=== PATIENT | female | born 1990 | race Caucasian/White ===

== ENCOUNTER 2019-02-02 05:07 | Inpatient (IN) | payer BC ==
[~2019-02-02] VITALS: Ht 170.2 cm; Wt 81.2 kg
[2019-02-02] VITALS (46 sets, daily range): BP systolic 102–137; BP diastolic 51–74; PULSE 50–123; TEMP 97.6–99.1
[2019-02-02] MEDS ORDERED: PRENATAL PO (05:32)
[2019-02-02] MEDS ORDERED: OSCAL 500 TAB500 MG PO (05:33)
[2019-02-02 06:15] LABS: BASO % 0.3 % (0.0-2.0); EOS # 0.1 (0.0-0.7); EOS % 0.5 % (0-4.0); GRAN # 9.9 (1.4-6.5); GRAN % 83.1 % (42.2-75.2); HEMATOCRIT 37.8 % (37.0-47.0); HEMOGLOBIN 12.6 g/dl (12.5-16.0); LYMPH # 1.2 (1.2-3.4); LYMPH % 10.3 % (20.0-51.0); MEAN CELL VOLUME 85 fl (80.0-100.0); MEAN CORPUSCULAR HEMOGLOBIN 28 pg (27.0-31.0); MEAN CORPUSCULAR HGB CONC 33 g/dl (33.0-37.0); MEAN PLATELET VOLUME 10.5 fl (7.4-10.4); MONO # 0.6 (0.1-0.6); PLATELET COUNT 290 K/mm3 (130-400); RED BLOOD COUNT 4.43 M/mm3 (4.10-5.30); REDCELL DISTRIBUTION WIDTH-CV 13.5 % (11.5-14.5)
[2019-02-03 00:30] VITALS: BP 108/51; PULSE 61; TEMP 97.7
[2019-02-03 08:45] VITALS: BP 98/62; PULSE 68; TEMP 97.1
[2019-02-03 21:00] VITALS: BP 107/54; PULSE 63; TEMP 98.4
[2019-02-04 08:57] VITALS: BP 102/68; PULSE 76; TEMP 98.1
[2019-02-04] MEDS ORDERED: PERCOCET 325 MG1 TA2 PO (12:32)
[2019-02-04] MEDS ORDERED: IBU600 MG PO (12:32)
== END 2019-02-04 13:27 | disposition home or self-care (01) | DRG 807 ==
LOC: LDR 05:07 → OB 23:17
PROVIDERS: ADMIT Obstetrics & Gynecology
PROC: 10D07Z6 Extraction of Products of Conception, Vacuum, Via Natural or Artificial Opening (ICD-10-PCS; principal; 2019-02-02)
PROC: 0KQM0ZZ Repair Perineum Muscle, Open Approach (ICD-10-PCS; 2019-02-02)
PROC: 10907ZC Drainage of Amniotic Fluid, Therapeutic from Products of Conception, Via Natural or Artificial Opening (ICD-10-PCS; 2019-02-02)
DX: O48.0 Post-term pregnancy (principal); Z37.0 Single live birth; O76 Abnormality in fetal heart rate and rhythm complicating labor and delivery; O70.1 Second degree perineal laceration during delivery; Z3A.40 40 weeks gestation of pregnancy
CPT/HCPCS: J2590; J2791; J2795; J7120

== ENCOUNTER → 2021-11-09 | Outpatient (CLI) | payer BC ==
[~2021-11-09] MED LIST: IBU600 MG PO; OSCAL 500 TAB500 MG PO; PERCOCET 325 MG1 TA2 PO; PRENATAL PO
== END ==
LOC: DIA.ED 08:33
DX: O24.419 Gestational diabetes mellitus in pregnancy, unspecified control (principal)
CPT/HCPCS: G0108

== ENCOUNTER 2021-12-29 14:02 | Inpatient (IN) | payer BC ==
[~2021-12-29] VITALS: Ht 170.2 cm; Wt 74.1 kg
[2021-12-29] VITALS (17 sets, daily range): BP systolic 101–127; BP diastolic 51–65; PULSE 56–124; TEMP 98.6–98.9
[2021-12-29] MEDS ORDERED: CALCIUM 600MG+D1 TAB PO (14:44)
[2021-12-29 14:48] LABS: BASO % 0.2 % (0.0-2.0); EOS # 0.1 K/mm3 (0.0-0.7); EOS % 0.4 % (0.0-4.0); GRAN # 13.3 K/mm3 (1.4-6.5); GRAN % 84.7 % (42.2-75.2); HEMOGLOBIN 13.2 g/dl (12.5-16.0); LYMPH # 1.4 K/mm3 (1.2-3.4); LYMPH % 8.9 % (20.0-51.0); MEAN CELL VOLUME 86 fl (80.0-100.0); MEAN CORPUSCULAR HEMOGLOBIN 29 pg (27-31); MEAN CORPUSCULAR HGB CONC 33 g/dl (33.0-37.0); MEAN PLATELET VOLUME 10.4 fl (7.4-10.4); MONO # 0.8 K/mm3 (0.1-0.6); MONO % 5.2 % (1.7-9.3); PLATELET COUNT 258 K/mm3 (130-400); RED BLOOD COUNT 4.63 M/mm3 (4.10-5.30); REDCELL DISTRIBUTION WIDTH-CV 14.3 % (11.5-14.5)
--- NOTE | 2021-12-29 15:30 | NUR ---
1530-Patient requests epidural. ELIESER Woody notified. 1545-ELIESER Woody to patient room. Patient sitting upright on bedside for epidural placment. 1551-Test dose administered by ELIESER Woody. Paitent tolerated well. Repostioned sitting upright in bed. Updatd on plan of care and safety.
--- NOTE | 2021-12-29 16:05 | NUR ---
1605- on unit. 160-SVE by /-1. Orders to place reeves. 161-Reeves to DD by this RN. Dark yellow urine return. Nichol care provided. SVE -0 updated MD who is on unit. Paitent with increasing pain. ELIESER Woody notified and epidural IMPROVEMENT DIRECTOR button used by patient. 162-Dr. العلي and ELIESER Woody to patient room. Epidural dosed by ELIESER Woody see anesthesia record. SVE by Dr. العلي patient complete and zero station. 1622-Paitent begins pushing with moves vertex well.
--- NOTE | 2021-12-29 16:30 | NUR ---
1630-FHR down to 70's with pushing, slow to return to baseline. MD discusses vacuum with patient. Patient agreeable to VAVD. 1631-Vacuum placed by MD patient continues to push with contractions. Patient moves vertex well. Pop off of vacuum x1 with delivery of head. Patient continues to push and body immediately follows. Viable female to mothers abodmen. Cord clamped x2 and cut by . Care of assumed by MANAS Curtis. Apgars 8/9/9. 1633-Spontaneus delivery of intact placenta. [place] WNL. EBL 200ml Fundal massage firm. Pitocin bolus per protocol. First degree perineal laceration repaired by MD. Nichol care provided. Updated on plan of care and safety.
[2021-12-29] MEDS ORDERED: MOTRIN 800800 MG/TAB PO (16:47)
--- NOTE | 2021-12-29 20:00 | NUR ---
PT UP TO BATHROOM, ABLE TO VOID 200MLS. ASSISTED WITH PERICARE, ICE PACK, PERIPAD AND MESH UNDERWEAR APPLIED. GOWN CHANGED. PT ABLE TO AMBULATE TO WITHOUT DIFFICULTY. ORIENTED TO ROOM, PT DENIES PAIN AT THIS TIME.
[2021-12-30 02:04] VITALS: BP 113/57; PULSE 51; TEMP 97.4
[2021-12-30 05:47] VITALS: BP 101/72; PULSE 67; TEMP 97.3
[2021-12-30 07:48] VITALS: BP 101/54; PULSE 48; TEMP 97.9
[2021-12-30 12:00] VITALS: BP 108/62; PULSE 63
--- NOTE | 2021-12-30 12:41 | NUR ---
Sole Buffer offered congrats and a blessing with parents.
[2021-12-30 16:30] VITALS: BP 107/56; PULSE 56; TEMP 98.2
--- NOTE | 2021-12-30 19:58 | NUR ---
RECIEVED REPORT FROM DEJAN AT 1900
== END 2021-12-30 19:50 | disposition home or self-care (01) | DRG 807 ==
LOC: LDRO 14:02 → LDR 14:17 → OB 20:00
PROVIDERS: Obstetrics & Gynecology; ADMIT Obstetrics & Gynecology
PROC: 10D07Z6 Extraction of Products of Conception, Vacuum, Via Natural or Artificial Opening (ICD-10-PCS; principal; 2021-12-29)
PROC: 10907ZC Drainage of Amniotic Fluid, Therapeutic from Products of Conception, Via Natural or Artificial Opening (ICD-10-PCS; 2021-12-29)
PROC: 0HQ9XZZ Repair Perineum Skin, External Approach (ICD-10-PCS; 2021-12-29)
DX: O24.420 Gestational diabetes mellitus in childbirth, diet controlled (principal); Z37.0 Single live birth; O76 Abnormality in fetal heart rate and rhythm complicating labor and delivery; O70.0 First degree perineal laceration during delivery; Z3A.39 39 weeks gestation of pregnancy
CPT/HCPCS: J2590; J2791; J7120